=== PATIENT | female | born 2000 | race African-American/Black ===

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

== ENCOUNTER 2020-06-27 10:47 | Outpatient (CLI) | payer OTHER ==
--- NOTE | 2020-06-27 13:01 | ULT ---
ULTRASOUND OBSTETRICAL COMPLETE: DATE: 06/27/2020 HISTORY: 19-year-old female for anatomical survey and maternal cervix assessment Z 34.82, encounter for supervision of other normal , second trimester FINDINGS: Maternal adnexa: Not visualized. number: [email or web address] lie: Cephalic Maternal cervix: 4 cm. Closed. Placenta: Anterior. No placenta previa. Amniotic fluid volume: ELIOT = 11.5 cm heart rate: 134 bpm The following anatomy is visualized, with no evidence of anomalies: Head, cerebellum, lateral ventricles, four-chamber heart, stomach, kidneys, cord insertion, bladder, cervical spine, thoracic spine, lumbar spine, sacrum, nose and lips, upper extremities, lower extremities, and three-vessel cord. biometry: Biparietal diameter (BPD): 4.4 cm 19 w 2 d Head circumference (HC): 17.2 cm 19 w 6 d Abdominal circumference (AC): 14.5 cm 19 w 6 d Femur length (FL): 3.4 cm 20 w 5 d Average ultrasound age (AUA): 20 w 0 d Estimated date of delivery (UZAIR): 11/14/2020 Estimated weight (EFW): 334 g +/- 49 g IMPRESSION: 1) Live 2nd trimester intrauterine gestation. 2) Estimated gestational age of 20 weeks, 0 days 3) Vertex lie. 4) no anatomic abnormality identified.
== END 2020-06-27 10:48 | disposition home or self-care (01) ==
LOC: BICULT 10:47
PROVIDERS: ATTEND Family Medicine
DX: Z34.82 Encounter for supervision of other normal pregnancy, second trimester (principal); Z3A.20 20 weeks gestation of pregnancy
CPT/HCPCS: 76805